=== PATIENT | female | born 1990 | race Caucasian/White ===

== ENCOUNTER → 2024-07-16 | Outpatient (CLI) | payer SELFPAY ==
--- NOTE | 2024-07-16 12:49 | US_ITS ---
STUDY: ULTRASOUND OF THE FEMALE PELVIS - COMPLETE REASON FOR EXAM: Female, 33 years old. INFERTILITY LMP: July 02, 2024. TECHNIQUE: Transabdominal and Transvaginal TECHNICAL QUALITY: Adequate. COMPARISON: None. FINDINGS: The uterus is retroverted and is in a midline position. The uterus measures 6.8 cm x 5.5 cm x 3.7 cm. There is a Nabothian cyst of the cervix. The endometrium measures 8 mm in thickness, and is heterogeneous (striated). There is no demonstrated endometrial mass. Heterogeneous appearance of the myometrium although no focal fibroid is seen. I.U.D. - The patient does not have an I.U.D. The right ovary is visualized. The right ovary measures 4.4 cm x 2.5 cm x 2 cm. Dominant follicle measuring 2.1 cm x 1.3 cm x 1.1 There is no visualized right adnexal mass or complex lesion. There is normal arterial and normal venous vascularity. The left ovary is visualized. The left ovary measures 2.9 cm x 2.1 cm x 1.4 cm. There is no left ovarian cyst or ovarian mass. There is no visualized left adnexal mass or complex lesion. There is normal arterial and normal venous vascularity. Small amount of free fluid is seen adjacent to the right ovary. The pre void volume of the bladder was 208 ml. US/Pelvic w/ Transvaginal IMPRESSION: Heterogeneous appearance of the myometrium although no focal fibroid is seen. Dominant follicle is seen in the right ovary. Small amount of free fluid is seen adjacent to the right ovary. Electronically Signed: Piter Butler MD at 12:27 EST ,
== END | disposition home or self-care (01) ==
LOC: US 12:43
PROVIDERS: PCP Physician Assistant; Referring Provider Physician Assistant; Visit Provider Physician Assistant
DX: N97.9 Female infertility, unspecified (principal)
CPT/HCPCS: 76830; 76856